=== PATIENT | female | born 1950 | race Caucasian/White ===

== ENCOUNTER 2016-11-28 09:27 | Outpatient (RCR) | payer MEDICARE | END 2016-12-04 | disposition home or self-care (01) | LOC: M PT 09:27 | PROVIDERS: ATTEND Neurological Surgery | DX: M47.26 Other spondylosis with radiculopathy, lumbar region (principal); M48.06 Spinal stenosis, lumbar region | CPT/HCPCS: 97110; 97161; G8978; G8979 ==

== ENCOUNTER 2018-10-16 14:32 | Emergency (ER) | payer MEDICARE ==
[~2018-10-16] VITALS: Ht 167.6 cm; Wt 75.0 kg
[2018-10-16 15:36] LABS: HEMATOCRIT 39.6 % (36.0-47.0); HEMOGLOBIN 13.3 g/dl (12.0-15.5); MEAN CORPUSCULAR HEMOGLOBIN 29.1 pg (27.0-33.0); MEAN CORPUSCULAR HGB CONC 33.6 g/dl (32.0-36.5); MEAN CORPUSCULAR VOLUME 86.7 fl (80.0-96.0); PLATELET COUNT, AUTOMATED 197 10^3/uL (150-450); RED BLOOD COUNT 4.57 10^6/uL (4.00-5.40); WHITE BLOOD COUNT 5.5 10^3/uL (4.0-10.0)
[2018-10-16 15:54] LABS: C REACTIVE PROTEIN QUANTITATIV 0.3 MG/DL (0.00-0.30); CALCIUM LEVEL 8.7 MG/DL (8.8-10.2); CREATININE FOR GFR 1.17 MG/DL (0.55-1.30); POTASSIUM SERUM 4.4 MEQ/L (3.5-5.1)
[2018-10-16 17:15] VITALS: BP 138/84
--- NOTE | 2018-10-16 17:17 | REPVR ---
EXAM: US Right Non-Vascular Joint or Other Extremity Structure, Limited Upper Extremity EXAM DATE/TIME: 10/16/2018 4:56 PM CLINICAL HISTORY: 68 years old, female; Patient HX: not ankle pain, had to select from list in order to proceed with validating order. Patient's right cheek is where her pain is. ; Additional info: Right facial swelling TECHNIQUE: Imaging protocol: Right US Non-Vascular Joint or Other Extremity Structure. Limited exam of the upper extremity. COMPARISON: No relevant prior studies available. FINDINGS: Soft tissues: Ultrasound imaging over the right buccal region demonstrates soft tissue edema in the area of clinical concern. No well-defined mass or fluid collection demonstrated. IMPRESSION: Ultrasound imaging over the right buccal region demonstrates soft tissue edema in the area of clinical concern. No well-defined mass or fluid collection demonstrated. Electronically signed by: Graeme Soliz On 10/16/2018 17:16:38 PM
== END 2018-10-16 17:17 | disposition home or self-care (01) ==
LOC: M ED 14:32
DX: Z91.038 Other insect allergy status (principal)

== ENCOUNTER 2020-12-07 07:27 | Emergency (ER) | payer MEDICARE ==
[~2020-12-07] VITALS: Ht 167.6 cm; Wt 76.4 kg
[2020-12-07] MEDS ORDERED: ONDANSETRON 4 MG ORAL DISINTEGRATING TAB PO ONE (07:55)
[2020-12-07] MEDS ORDERED: MORPHINE 10 MG/ML 1ML VIAL (J2270) IM ONE (07:55)
[2020-12-07] MEDS ORDERED: SUCR1TAB56 (08:16)
[2020-12-07] MEDS ORDERED: PANT40TA29 (08:16)
--- NOTE | 2020-12-07 08:23 | REP ---
INDICATION: trauma left posterior rib pain. COMPARISON: None. TECHNIQUE: Helical scanning is acquired. 3 mm axial images are generated. Coronal and sagittal MPR and coronal MIP images are generated. FINDINGS: Preliminary digital internist radiograph shows clips in the right upper quadrant of the abdomen. Process Developer view is otherwise unremarkable. There is no evidence of pneumothorax. No mediastinal hematoma is seen. Patient is status post lower cervical discectomy and fusion plating. There are degenerative disc changes in the thoracic spine and there is a mild broad-based levoconvex thoracic spine curvature. There is a subtle nondisplaced fracture in the posterior and lateral segment of the left 10th rib. There is a small quantity of left pleural fluid at the left base adjacent to this. No right pleural or pericardial effusion is seen. There are linear densities in the lingula at the left base, and in the right middle lobe at the right base consistent with fibrosis versus platelike atelectasis. There are mild discoid atelectatic changes in the lower lobes. Lung العلي are otherwise clear. There is a benign perifissural subcentimeter nodule along the major fissure on the right. No significant pulmonary nodule or mass lesion is observed. There are 2 normal-sized pretracheal lymph nodes in the mediastinum, each is 8 mm in short axis dimension. Normal adrenal glands are seen in the upper abdomen. The gallbladder is surgically absent. The visualized upper abdominal structures are otherwise unremarkable. IMPRESSION: Small quantity of left pleural fluid. Nondisplaced subtle fracture left posterolateral 10th rib. No evidence of pneumothorax. Thoracic levoconvex scoliosis. Bibasilar linear fibrosis and/or platelike atelectasis. <Electronically signed by Ken Zamora > 12/07/20 [id number]
--- NOTE | 2020-12-07 08:29 | REP ---
INDICATION: trauma. COMPARISON: None. TECHNIQUE: AP view pelvis. FINDINGS: No evidence of acute fracture or dislocation. Fusion hardware is seen at the left sacroiliac joint. There is mild sclerosis at the pubic symphysis. There are mild degenerative changes of the lower lumbar spine. IMPRESSION: No acute fracture or dislocation. <Electronically signed by Austyn Hutson > 12/07/20 [id number]
[2020-12-07] MEDS ORDERED: ZOFR4TAB16 PO (08:50)
[2020-12-07] MEDS ORDERED: PERC5TAB12 PO (08:51)
[2020-12-07 09:01] VITALS: BP 110/59
== END 2020-12-07 09:02 | disposition home or self-care (01) ==
LOC: M ED 07:27
DX: S22.32XA Fracture of one rib, left side, initial encounter for closed fracture (principal); W10.9XXA Fall (on) (from) unspecified stairs and steps, initial encounter; Y92.89 Other specified places as the place of occurrence of the external cause; Y93.89 Activity, other specified; Y99.8 Other external cause status; K21.9 Gastro-esophageal reflux disease without esophagitis; Z79.899 Other long term (current) drug therapy; Z87.19 Personal history of other diseases of the digestive system; Z90.49 Acquired absence of other specified parts of digestive tract; Z98.890 Other specified postprocedural states
CPT/HCPCS: 71250; 72190; 96372; 99283; J2270; Q0162